=== PATIENT | female | born 1965 | race Two or more races ===

== ENCOUNTER 2017-07-18 08:07 | Outpatient (CLI) | payer OTHER | END 2017-07-18 08:08 | disposition home or self-care (01) | LOC: DI 08:07 | PROVIDERS: ATTEND Registered Nurse Diabetes Educator | DX: R01.1 Cardiac murmur, unspecified (principal); R06.00 Dyspnea, unspecified; I35.1 Nonrheumatic aortic (valve) insufficiency | CPT/HCPCS: 93306 ==

== ENCOUNTER 2017-09-17 13:36 | Outpatient (CLI) | payer OTHER ==
--- NOTE | 2017-09-17 16:57 | CARDIAC PROCEDURE NOTE ---
DATE OF SERVICE: 09/17/[address] [facility]: Annmarie Mallory [facility] PRIMARY CARE PHYSICIAN: Waqas Fatima PROCEDURE: Cardiac treadmill stress test. PROCEDURES SYMPTOMS: Dyspnea on exertion, new systolic murmur. CARDIAC RISK FACTORS: Include age and low HDL. PREVIOUS CARDIAC PROCEDURES: None. CLINICAL HISTORY: A 52-year-old female without known coronary artery disease. She has no symptoms today. INITIAL RESTING VITAL SIGNS: Blood pressure 110/70, heart rate 95, height 60 inches, weight 145 pounds. PROCEDURE AND FINDINGS: The patient identity and date verified. Consent signed. The patient performed treadmill exercise using a Geovanny protocol completing 5 minutes, 30 seconds and completing an estimated workload of 7.05 metabolic equivalents. Maximal blood pressure was 138/78 with a heart rate of 143 beats per minute or 84% maximum predicted heart rate for age. The blood pressure response to exercise was within normal limits. The patient stopped because of symptoms of neck tightness and dyspnea. The resting ECG demonstrated normal sinus rhythm with no abnormality. Maximal ST segment depression was up to 5 mm and downsloping. There was no ectopy. The patient was maintained in recovery until her ST segment returned to normal and she had no residual neck tightness. Prior to discharge, she was given instructions. I informally spoke with Dr. Baldev Chapin, wire fence erector at [facility], and reviewed the treadmill test tracings with him. He recommended aspirin, beta aria and p.r.n. nitroglycerin with rapid referral to cardiology. FINAL IMPRESSION 1. Positive stress electrocardiogram for ischemia by electrocardiographic criteria. 2. Positive stress test clinically for angina. 3. Markedly positive stress test. I discussed abnormal test with patient and recommended she not exert herself in the interim until additional testing could be arranged and that she call 911 for chest pain or neck tightness not relieved within 5 minutes. Telephone call to primary care INVESTMENT SPECIALIST, Waqas Fatima, with recommendations for her to get the patient into wire fence erector very soon and to start her on aspirin, beta aria and nitroglycerin. I gave Ms. Fatima the patient's phone number, , to call and talk with her. [facility] TD: 09/17/2017 15:49 [facility]
[2017-09-17 18:30] VITALS: BP 110/70
== END 2017-09-17 13:37 | disposition home or self-care (01) ==
LOC: DI 13:36
PROVIDERS: ATTEND Registered Nurse Diabetes Educator
DX: R94.39 Abnormal result of other cardiovascular function study (principal); R01.1 Cardiac murmur, unspecified; I20.9 Angina pectoris, unspecified
CPT/HCPCS: 93017

== ENCOUNTER 2018-02-22 10:03 | Outpatient (CLI) | payer OTHER ==
--- NOTE | 2018-02-22 16:09 | XRAY Report ---
Reason: SWALLOWING IMPAIRMENT Procedure Date: 02/22/2018 Accession Number: [id number] / [id number] Procedure: FL - Modified Barium Swallow W/SP CPT Code: FULL RESULT: EXAM: MODIFIED BARIUM SWALLOW EXAM DATE: 02/22/2018 10:45 AM. CLINICAL HISTORY: Swallowing impairment. COMPARISON: None. TECHNIQUE: Under the direction of speech pathology, patient swallowed various consistencies of barium under lateral fluoroscopic observation of the neck. Fluoroscopy Time: 1 minute 4 seconds. Number of Images: 37. FINDINGS: Swallowing Mechanism: Normal oral phase and swallowing reflex. Airway Protection: Normal epiglottic motion. No episodes of tracheal penetration or aspiration with all consistencies of barium. Pharynx: Normal. No significant vallecular or piriform sinus contrast pooling. Other: None. IMPRESSION: Normal modified barium swallow. No aspiration identified. RADIA
== END 2018-02-22 10:04 | disposition home or self-care (01) ==
LOC: DI 10:03
PROVIDERS: ATTEND Nurse Practitioner Adult Health
DX: R13.10 Dysphagia, unspecified (principal)
CPT/HCPCS: 74230

== ENCOUNTER 2019-08-17 10:41 | Outpatient (CLI) | payer OTHER, MEDICAID ==
[2019-08-17 12:46] LABS: BASOPHILS # (AUTO) 0.1 10^3/uL (0.0-0.1); BASOPHILS % (AUTO) 0.9 %; EOSINOPHILS # (AUTO) 0.1 10^3/uL (0.0-0.7); EOSINOPHILS % (AUTO) 2.5 %; HGB - HEMOGLOBIN 13.4 g/dL (12.0-16.0); LYMPHOCYTES # (AUTO) 1.3 10^3/uL (1.5-3.5); LYMPHOCYTES % (AUTO) 23.4 %; MEAN CORPUSCULAR HEMOGLOBIN 28.8 pg (27.0-31.0); MEAN CORPUSCULAR HGB CONC 32.3 g/dL (32.0-36.0); MEAN CORPUSCULAR VOLUME 89.1 fL (81.0-99.0); MEAN PLATELET VOLUME 10.5 fL (7.9-10.8); MONOCYTES # (AUTO) 0.3 10^3/uL (0.0-1.0); MONOCYTES % (AUTO) 5.3 %; NEUTROPHILS # (AUTO) 3.8 10^3/uL (1.5-6.6); NEUTROPHILS % (AUTO) 67.5 %; PLT - PLATELET COUNT 177 10^3/uL (130-450); RED BLOOD COUNT 4.66 10^6/uL (4.20-5.40); RED CELL DISTRIBUTION WIDTH 12.8 % (12.0-15.0); WHITE BLOOD COUNT 5.6 x10^3/uL (4.8-10.8)
[2019-08-17 13:14] LABS: ALBUMIN 4.3 g/dL (3.2-5.5); ALBUMIN/GLOBULIN RATIO 1.3 (1.0-2.2); BILIRUBIN,TOTAL 0.7 mg/dL (0.2-1.0); CALCIUM 9.4 mg/dL (8.5-10.3); CREATININE 0.9 mg/dL (0.4-1.0); TOTAL PROTEIN 7.7 g/dL (6.7-8.2)
== END 2019-08-17 23:59 | disposition home or self-care (01) ==
LOC: LAB.WCP 10:41
PROVIDERS: ATTEND Nurse Practitioner Family
DX: R60.0 Localized edema (principal)
CPT/HCPCS: 36415; 80053; 83880; 85025

== ENCOUNTER 2019-08-22 08:00 | Outpatient (CLI) | payer OTHER, MEDICAID ==
[2019-08-22 14:37] LABS: CALCIUM 9.6 mg/dL (8.5-10.3); CREATININE 0.8 mg/dL (0.4-1.0)
== END 2019-08-22 23:59 | disposition home or self-care (01) ==
LOC: LAB.WCP 08:00
PROVIDERS: ATTEND Nurse Practitioner Family
DX: R60.0 Localized edema (principal)
CPT/HCPCS: 36415; 80048

== ENCOUNTER 2019-10-11 08:00 | Outpatient (CLI) | payer OTHER, MEDICAID ==
[2019-10-11 18:15] LABS: BASOPHILS % (AUTO) 0.8 %; EOSINOPHILS # (AUTO) 0.2 10^3/uL (0.0-0.7); EOSINOPHILS % (AUTO) 4.2 %; HGB - HEMOGLOBIN 13.9 g/dL (12.0-16.0); LYMPHOCYTES # (AUTO) 1.5 10^3/uL (1.5-3.5); LYMPHOCYTES % (AUTO) 30.8 %; MEAN CORPUSCULAR HEMOGLOBIN 29.1 pg (27.0-31.0); MEAN CORPUSCULAR HGB CONC 32.2 g/dL (32.0-36.0); MEAN CORPUSCULAR VOLUME 90.4 fL (81.0-99.0); MEAN PLATELET VOLUME 10.6 fL (7.9-10.8); MONOCYTES # (AUTO) 0.3 10^3/uL (0.0-1.0); MONOCYTES % (AUTO) 6.4 %; NEUTROPHILS # (AUTO) 2.7 10^3/uL (1.5-6.6); NEUTROPHILS % (AUTO) 57.6 %; PLT - PLATELET COUNT 158 10^3/uL (130-450); RED BLOOD COUNT 4.78 10^6/uL (4.20-5.40); RED CELL DISTRIBUTION WIDTH 13.1 % (12.0-15.0); WHITE BLOOD COUNT 4.7 x10^3/uL (4.8-10.8)
[2019-10-11 18:39] LABS: BUN - BLOOD UREA NITROGEN 15 mg/dL (6-20); CALCIUM 9.4 mg/dL (8.5-10.3); CARBON DIOXIDE - CO2 27 mmol/L (21-32); CHLORIDE 107 mmol/L (101-111); CHOLESTEROL 92 mg/dL; CREATININE 0.8 mg/dL (0.4-1.0); GLUCOSE 114 mg/dL (70-100); HDL CHOLESTEROL 46 mg/dL; LDL CHOLESTEROL,CALCULATED 9 mg/dL; LDL/HDL RATIO 0.2 (<4.4); MAGNESIUM 2.8 mg/dL (1.7-2.8); SODIUM 139 mmol/L (135-145); VLDL CHOLESTEROL 37 mg/dL
== END 2019-10-11 23:59 | disposition home or self-care (01) ==
LOC: LAB.WCP 08:00
PROVIDERS: ATTEND Internal Medicine Cardiovascular Disease
DX: R00.2 Palpitations (principal); E78.5 Hyperlipidemia, unspecified
CPT/HCPCS: 36415; 80048; 80061; 83721; 83735; 84443; 85025

== ENCOUNTER 2019-11-09 15:59 | Outpatient (CLI) | payer OTHER, MEDICAID ==
--- NOTE | 2019-11-10 14:36 | XRAY Report ---
PROCEDURE: Hand 3 View BILAT INDICATIONS: BILATERAL HAND STIFFNESS TECHNIQUE: 3 views of the right and left hand(s) acquired. COMPARISON: None FINDINGS: Bones: No fractures or dislocations. No suspicious bony lesions. No erosive changes. No periarticul ar osteopenia. Soft tissues: No suspicious soft tissue calcifications. IMPRESSION: No osseous lesion. If there is continued clinical concern for pathology, then advanced imaging (CT, M R, bone scan) should be considered for further evaluation. Reviewed by: Jovanna Tay MD, PhD on 11/10/2019 2:35 PM PDT Approved by: Jovanna Tay MD, PhD on 11/10/2019 2:35 PM PDT Station ID: [id number]
== END 2019-11-09 16:00 | disposition home or self-care (01) ==
LOC: DI 15:59
PROVIDERS: ATTEND Nurse Practitioner Family
DX: M25.641 Stiffness of right hand, not elsewhere classified (principal); M25.642 Stiffness of left hand, not elsewhere classified

== ENCOUNTER 2020-12-06 08:00 | Outpatient (CLI) | payer OTHER, MEDICAID ==
--- NOTE | 2020-12-07 08:48 | XRAY Report ---
PROCEDURE: Hand 3 View LT INDICATIONS: FOOSH TECHNIQUE: 3 views of the hand(s) acquired. COMPARISON: 11/09/2019 FINDINGS: Bones: No fractures or dislocations. No suspicious bony lesions. Osteoarthritic changes along radi al aspect of left wrist are seen more prominent involving first CMC joint and first MCP joint. Soft tissues: No suspicious soft tissue calcifications. IMPRESSION: No acute left hand fracture or dislocation. 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 Reviewed by: Lavell Swanson MD on 12/07/2020 8:46 AM PDT Approved by: Lavell Swanson MD on 12/07/2020 8:46 AM PDT Station ID: [id number]
== END 2020-12-06 23:59 | disposition home or self-care (01) ==
LOC: DI.N 08:00
PROVIDERS: ATTEND Family Medicine
DX: M19.042 Primary osteoarthritis, left hand (principal)

== ENCOUNTER 2020-12-13 08:00 | Outpatient (CLI) | payer OTHER, MEDICAID | END 2020-12-13 23:59 | disposition home or self-care (01) | LOC: LAB.N 08:00 | PROVIDERS: ATTEND Nurse Practitioner | DX: R05 Cough (principal); R07.0 Pain in throat; Z20.822 Contact with and (suspected) exposure to COVID-19 | CPT/HCPCS: 87070 ==